=== PATIENT | male | born 1955 | race Two or more races ===

== ENCOUNTER 2019-09-08 23:58 | Inpatient (IN) | payer MEDICAID, OTHER ==
--- NOTE | 2019-09-09 00:10 | ED ---
Psychiatric Complaint - HPI Summary HPI Summary: 64-year-old male with no significant past medical history presents to the emergency department today with a 2209 order who has altered mental status upon arrival however he is nontoxic and in no acute distress medically. Patient is speaking in bizarre sentences repeatedly mentioning "Mary Ann" and the "person with a ponytail" and the "5 second rule". Patient is an employee at [employer]. Patient's coworkers called EMS while at [employer] as the patient was acting strangely all day. Upon arrival to the emergency department patient has no medical complaints and denies physical pain or shortness of breath, chest and abdominal pain, fever, suicidal or homicidal ideation. Patient denies alcohol use or recreational drug use prior to arrival. BG was 89 via EMS. HPI difficult to obtain due to pt mentation. - History Of Current Complaint Time Seen by Provider: 09/09/19 00:04 Hx Obtained From: Patient Character: Anxious Associated Signs And Symptoms: Positive: Confused Has Suicidal: Denies: Thoughts Has Homicidal: Denies: Thoughts Review of Systems Constitutional: Negative Eyes: Negative ENT: Negative Cardiovascular: Negative Respiratory: Negative Gastrointestinal: Negative Genitourinary: Negative Musculoskeletal: Negative Skin: Negative Neurological/Mental Status: Negative Psychological: Normal All Other Systems Reviewed And Are Negative: Yes Physical Exam - Summary Physical Exam Summary: Patient is in no acute distress. Trauma. No other deformity noted. Patient has full range of motion with 5 out of 5 strength throughout body. Patient has no evidence of labored breathing for fever, wheezing. Patient appears anxious and acts as if he is intoxicated and is speaking coherently with bizarre sentences. Triage Information Reviewed: Yes Vital Signs Reviewed: Yes Appearance: Positive: Well-Appearing, No Pain Distress, Well-Nourished Skin: Positive: Warm, Skin Color Reflects Adequate Perfusion Eyes: Positive: EOMI, RACHEL ENT: Positive: Hearing grossly normal Respiratory/Lung Sounds: Positive: Clear to Auscultation, Breath Sounds Present Cardiovascular: Positive: RRR, S1, S2 Abdomen Description: Positive: Nontender, Soft Bowel Sounds: Positive: Present Musculoskeletal: Positive: Strength/ROM Intact Neurological: Positive: Sensory/Motor Intact, Alert, Oriented to Person Place, Time, Normal Gait, Facial Symmetry, Speech Normal Psychiatric: Positive: Patient Uncooperative for Exam AVPU Assessment: Alert Procedures - Sedation Patient Received Moderate/Deep Sedation with Procedure: No Diagnostics - Laboratory Result Diagrams: 09/09/19 00:25 09/09/19 00:25 Lab Statement: Any lab studies that have been ordered have been reviewed, and results considered in the medical decision making process. Re-Evaluation - Re-Evaluation First Eval Re-Evaluation Time: 03:28 Comment: TSH of 84.82 noted, T4 and brain CT ordered. Second Eval Re-Evaluation Time: 03:58 Comment: Unable to obtain brain CT at this time, patient unable to remain still. Ativan ordered. Third Eval Re-Evaluation Time: 05:04 Comment: Brain CT was still unable to be obtained as the patient was still awake and unable to remain still. Haldol ordered. Course/Dx - Course Course Of Treatment: Patient was evaluated in the emergency department today due to altered mental status under a 2209 order. Vitals noted and stable. Patient was in no acute distress however he was speaking in a bizarre fashion and appeared intoxicated. Patient was changed hospital scrubs and his belongings were collected. Patient was placed under observation. Patient was given 2 mg of Ativan IM due to being agitated and mildly combative with staff. Laboratory studies returned showing no leukocytosis with white blood cell count of 8.4. There is no significant anemia. There is no significant electrolyte abnormality. AST is markedly elevated at 74 with a healthy 33. This is suggestive of alcoholic fatty liver disease. All other LFTs are within normal limits. Serum alcohol level is 0. Pt cleared for mental health evaluation. Patient was signed out to emergency room attending physician Dr. Carrizales at approximately 2:30. - Differential Dx/Clinical Impression Differential Diagnosis/HQI/PQRI: Positive: Acute Psychosis, Drug Overdose/ Unintentional, Other - Alcohol intoxication Provider Diagnosis: Psychosis, Hypothyroidism Discharge ED - Sign-Out/Discharge Documenting (check all that apply): Sign-Out Patient Signing out patient TO: Puma Carrizales Receiving patient FROM: Navin Eagle - Discharge Plan Condition: Stable Disposition: ADMITTED TO [facility] Referrals: No Primary Care Phys,NOPCP [Primary Care Provider] - - Billing Disposition and Condition Condition: STABLE Disposition: Admitted to [facility] - Attestation Statements Provider Attestation: I have seen the patient with the JULIÁN and agree with the plan and documentation below except as noted: 64 y/o male p/w acute psychosis. Labs notable for sig elevated TSH, undetectable T4. Unable to get head CT 2/2 combativeness. Given ativan once, attempted CT did not tolerate, then given haldol. admit to medicine for pyschosis and hypothyroidism Puma Carrizales MD
[2019-09-09] MEDS ORDERED: LORazepam INJ* 2 MG/ML 1 ML VIAL IM ONE ×2 (00:20→03:59)
[2019-09-09] MEDS ORDERED: Lorazepam PYXIS KEY PRN ×3 (00:20→05:47)
[2019-09-09] MEDS ORDERED: Lorazepam PYXIS KEY ONE ×2 (00:24→04:20)
[2019-09-09 00:38] LABS: ABS Basophils 0.1 10^3/ul (0-0.2); ABS Eosinophils 0.3 10^3/ul (0-0.6); ABS Lymphocytes 1.3 10^3/ul (1.0-4.8); ABS Monocytes 0.4 10^3/ul (0-0.8); ABS Neutrophils 6.3 10^3/ul (1.5-7.7); Eosinophil % 3.4 %; Hematocrit 32 % (42-52); Hemoglobin 11.3 g/dL (14.0-18.0); Lymphocyte % 15.3 %; Mean Corpuscular HGB Conc 35 g/dL (31-36); Mean Corpuscular Hemoglobin 33 pg (27-31); Mean Corpuscular Volume 94 fL (80-94); Mean Platelet Volume 6.6 fL (7.4-10.4); Platelet Count 426 10^3/uL (150-450); Red Blood Count 3.41 10^6 /uL (4.18-5.48); Red Cell Distribution Width 14 % (10-15); White Blood Count 8.4 10^3/uL (3.5-10.8)
[2019-09-09 01:05] LABS: ALT 33 U/L (7-52); AST 74 U/L (13-39); Albumin/Globulin Ratio 1.4 (1-3); Alkaline Phosphatase 55 U/L (34-104); Anion Gap 10 mmol/L (2-11); BUN/Creatinine Ratio 13.6 (8-20); Blood Urea Nitrogen 18 mg/dL (6-24); CO2 Carbon Dioxide 25 mmol/L (22-32); Chloride 93 mmol/L (101-111); EGFR African American 66.1 (>60); EGFR Non-African American 54.6 (>60); Globulin 3.5 g/dL (2-4); Glucose 109 mg/dL (70-100); Potassium 4.4 mmol/L (3.5-5.0); Sodium 128 mmol/L (135-145); Total Protein 8.5 g/dL (6.4-8.9)
[2019-09-09 02:01] LABS: Acetaminophen < 15 mcg/mL; Alcohol < 10 mg/dL (<10); Salicylate < 2.50 mg/dL (<30)
[2019-09-09 02:45] LABS: TSH (Thyroid Stimulating Horm) 84.82 mcIU/mL (0.34-5.60)
--- NOTE | 2019-09-09 02:52 | ED ---
Progress - Progress Note Progress Note: Patient is received as a sign-out from HODA Eagle at 0230 09/09/19 shift end pending MHE and disposition of this patient. 0328 - TSH of 84.82 noted, T4 and brain CT ordered. 0358 - Unable to obtain brain CT at this time, patient unable to remain still. Ativan ordered. 0504 - Brain CT was still unable to be obtained as the patient was still awake and unable to remain still. Haldol ordered. Re-Evaluation - Re-Evaluation First Eval Re-Evaluation Time: 03:28 Comment: TSH of 84.82 noted, T4 and brain CT ordered. Second Eval Re-Evaluation Time: 03:58 Comment: Unable to obtain brain CT at this time, patient unable to remain still. Ativan ordered. Third Eval Re-Evaluation Time: 05:04 Comment: Brain CT was still unable to be obtained as the patient was still awake and unable to remain still. Haldol ordered. Course/Dx - Diagnoses Provider Diagnoses: Psychosis, Hypothyroidism - Provider Notifications Discussed Care Of Patient With: Courtney Stapleton Time Discussed With Above Provider: 05:11 Instructed by Provider To: Other - Patient's case was discussed with Dr. Stapleton, Dr. Stapleton accepts for admission Discharge ED - Sign-Out/Discharge Documenting (check all that apply): Patient Departure - admit, Receiving Sign- Out Receiving patient FROM: Navin Eagle - Discharge Plan Condition: Stable Disposition: ADMITTED TO [facility] Referrals: No Primary Care Phys,NOPCP [Primary Care Provider] - - Attestation Statements Document Initiated by Scribe: Yes Documenting Scribe: FELIPE OSORIO Provider For Whom Scribe is Documenting (Include Credential): GINA NGUYEN MD Scribe Attestation: FELIPE Babin, scribed for GINA NGUYEN MD on 09/09/19 at 0512. Status of Scribe Document: Ready
[2019-09-09 05:02] LABS: Free T4 < 0.25 ng/dL (0.61-1.12)
[2019-09-09] MEDS: Haloperidol INJ IV/IM* 5 MG/ML AMP IM ONE ×2 (05:05→07:54)
[2019-09-09] MEDS ORDERED: Hydrocortisone INJ* 100 MG/2 ML VIAL (in pyxis) IV ONE (05:30)
[2019-09-09] MEDS ORDERED: NS 0.9% 1000 ML** 1,000 ML IV ONE (05:31)
[2019-09-09] MEDS ORDERED: NS 0.9% 1000 ML** 1,000 ML IV SCH (05:45)
[2019-09-09] MEDS ORDERED: Haloperidol INJ IV/IM* 5 MG/ML AMP IV SLOW PU PRN (05:46)
[2019-09-09] MEDS ORDERED: LORazepam INJ* 2 MG/ML 1 ML VIAL IV PUSH PRN (05:47)
[2019-09-09] MEDS ORDERED: Levothyroxine INJ* 100 MCG/5 ML VIAL IV ONE (06:00)
[2019-09-09] MEDS ORDERED: D5W IV SCH (06:00)
[2019-09-09] MEDS ORDERED: LEVOTHYROXINE IV SCH (06:00)
[2019-09-09 06:22] LABS: Creatine Kinase 4722 U/L (10-223)
[2019-09-09 06:49] LABS: Urine Appearance Clear; Urine Bilirubin Negative (Negative); Urine Blood 1+ (Negative); Urine Color Yellow; Urine Glucose Negative (Negative); Urine Ketones Negative (Negative); Urine Nitrite Negative (Negative); Urine Protein 1+(30 mg/dL) (Negative); Urine Specific Gravity 1.016 (1.010-1.030); Urine Urobilinogen Negative (Negative)
[2019-09-09 07:00] LABS: Urine Benzodiazepine Screen None Detected (None Detect); Urine Opiates Screen None Detected (None Detect)
[2019-09-09 07:02] LABS: Urine Bacteria Absent (Absent); Urine Red Blood Cell Trace(0-2/hpf) (Absent); Urine White Blood Cell Trace(0-5/hpf) (Absent)
--- NOTE | 2019-09-09 07:59 | HP ---
HISTORY AND PHYSICAL: DATE OF ADMISSION: 09/09/19 CHIEF COMPLAINT: Bizarre behavior. PRIMARY CARE PROVIDER: Unknown. HISTORY OF PRESENT ILLNESS: Oscar Broderick is a 64-year-old male with unknown past medical history who was brought in by his co-workers from [facility] when he was noted to be acting out of sorts and bizarre behavior. When the patient presented to the ED, he was agitated, confused, and disoriented. Upon initial evaluation in the ED, it was noted that his TSH level over 80 and his free T4 was undetected. 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 He is going to be admitted to the intensive care unit, treated with IV levothyroxine. During the daytime, Endocrinology consult would be recommended. PAST MEDICAL HISTORY: Unobtainable from this patient who is just confused and now sedated with Haldol and Ativan. MEDICATIONS AT HOME: Unknown. FAMILY HISTORY: Unknown. SOCIAL HISTORY: Unknown. REVIEW OF SYSTEMS: Unable to obtain. When the patient wakes up, he denies any pain or shortness of breath or chest pain, but he is very sedated and lethargic and disoriented. PHYSICAL EXAMINATION GENERAL: The patient is a pleasant 64-year-old male who is sedated and lying in bed. The patient appears in no acute distress. He is oriented to self only. VITAL SIGNS: Blood pressure of 159/103, heart rate of 75 and regular, respiratory rate 16, oxygen saturation 98% on room air, temperature of 97.2. HEENT: Head: Atraumatic, normocephalic. Eyes: Pupils are equal, reactive to light and accommodation. Oropharynx is clear. Mucosa dry. NECK: Supple. No JVD, no bruit bilaterally. RESPIRATORY: Clear to auscultation bilaterally. CARDIOVASCULAR: Regular rate and rhythm. No murmur. ABDOMEN: Soft, nontender. Bowel sounds present in all 4 quadrants. EXTREMITIES: There is no edema. Pulses are +2 bilaterally. There is no clubbing or cyanosis. NEUROLOGIC: Speech is clear. Cranial nerves II through XII grossly intact. Motor strength is 5/5 bilaterally SKIN: Cool, dry, pale. Please note that there are no rashes noted on evaluation. PSYCHIATRIC: The patient is oriented to self only. He intermittently is able to cooperate with simple commands before drifting off to sleep. He requires multiple times to be convinced to be able to get an IV in, but eventually he agrees to that. DIAGNOSTIC STUDIES/LAB DATA: White blood cell count of 8.4, hemoglobin of 11.3 , hematocrit of 32, and platelets of 426. Sodium was 128, potassium 4.4, chloride 93, carbon dioxide 25, BUN 18, creatinine 1.32. Liver function test is unremarkable apart from slight elevation of AST of 74. Total CPK is pending. TSH of 84.8, free T4 of below 0.25, cortisol 16.06. Salicylates, acetaminophen, and alcohol level below detectable. CT of the brain is pending at the time of this dictation as well as EKG. ASSESSMENT AND PLAN: 1. A 64-year-old male with acute onset of disorientation and psychosis, in profound hypothyroidism. It is possible that the patient's psychosis is related to profound hypothyroidism. At this point, the patient is going to be treated with Synthroid, hydrocortisone IV. Due to possibility of arrhythmias, the patient is going to be placed in the intensive care unit. He will require one-to-one monitoring. At this point, he requires close attention due to that he is not cooperative with evaluation; he is at risk of pulling his IV out. During the daytime, our service should likely consult Endocrinology for help with further management of the profound hypothyroidism. 2. For DVT prophylaxis, the patient is going to be placed on heparin subcutaneously. 3. The patient's code status at this point was going to stay full since the patient is not able to make decisions for himself and he could not name a surrogate. 4. The patient's hyponatremia could be related to dehydration, but it could also be related to hypothyroidism. We will continue to treat the patient with intravenous fluids and recheck the patient's sodium level later on today. TIME SPENT: Approximately 55 minutes was spent on admission of this patient, more than half that time was spent [id number] with the patient during the interview and physical exam. [id number]/CPS #: [id number] MTDD
[2019-09-09] MEDS: Heparin VIAL(*) 5000 UNITS/ML VIAL (FIVE THOUSAND) SUBCUT SCH ×3 (08:09→21:01)
[2019-09-09 08:56] LABS: BUN/Creatinine Ratio 13.5 (8-20); Calcium 9.2 mg/dL (8.6-10.3); EGFR Non-African American 71.9 (>60); Potassium 4.8 mmol/L (3.5-5.0)
--- NOTE | 2019-09-09 11:32 | PN ---
<Inessa Stinson - Last Filed: 09/09/19 11:15> Progress Note - Progress Note Date of Service: 09/09/19 Note: Patient was admitted to ICU this morning for monitoring. He presents with AMS, agitation, and speaking bizzare sentences. His primary labwork that was abnormal , was a TSH of 84.82, Free T4 <0.25, and Na 128. Suspected hypothyroidism mediated psychosis. He was started on 200mcg synthroid and admitted to ICU for psychosis and cardiac monitoring. He was given at least 2 doses of ativan and possibly haldol in the ED. Upon assessment this AM, he is lethargic but wakes to verbal stimuli. He is oriented x2. Follows commands, doesnt open eyes, PERRL 3mm, protecting airway. Lung sounds have some wheezing throughout. Patient states he smokes 1PPD, no etoh use, and smokes marijuana daily. Denies other drug use. VSS. His sitter is at the bedside. He is restless at times. No EKG changes and has not required antipsychotics since ED. Patient is stable. He may be a candidate to transfer to floor later today. <Tika Browne - Last Filed: 09/09/19 13:09> Progress Note - Progress Note Note: Patient is hemodynamically stable since admission. Mental status has improved. Will transfer to floor with tele. I consulted Dr Olivo for further recommendations on management of hypothyroidism. No immediate medications or lab work necessary at this time. He will see the patient today.
--- NOTE | 2019-09-09 16:30 | CONSULT ---
Consult Consult: [facility] Inpatient Consult Note Date of Consult: 09/09/19 Reason for Consult: hypothyroidism Reason for Admission: altered mental status ASSESSMENT: 64 yo M with no significant past medical history, now presenting with AMS and moderate-severe hypothyroidism. 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 There is no evidence of adrenal insufficiency, although I recommend a Cosyntropin stimulation test to confirm this. See recommendations below. PLAN: - check TPO and thyroglobulin antibodies this admission - check TSH, free T4 daily while inpatient - start IV levothyroxine 100mcg QAM - change to PO levothyroxine 100mcg QAM when patient is tolerating oral intake - perform 250mcg Cosyntropin stimulation test at any time of day with 60 minute post-Cosyntropin cortisol level - follow-up with [facility] Endocrinology or Internal Medicine in 4 weeks - call with questions -- [phone] SUBJECTIVE: History of Present Illness: 64 yo M with no known PMH, now admitted for altered mental status and severe hypothyroid state. Patient has been in usual state of fair health and has continued to work at [email or web address], but was found to be confused in the evening of 09/08/19 and was brought to ED by police transport. Initial labs found TSH>80 and undetectable free T4, with exam consistent with myxedema. Patient denies personal or family history of thyroid disorder. No medications or substances other than tobacco. He does not have health insurance and has not seen a physician in many years. See ROS below. Acetaminophen (Tylenol Tab*) 650 mg PO Q4H PRN PRN Reason: PAIN-MILD/TEMP >/= 100.4 Haloperidol Lactate (Haldol Inj Iv/Im*) 5 mg IV SLOW PU Q6H PRN PRN Reason: AGITATION Heparin Sodium (Porcine) (Heparin Vial(*)) 5,000 units SUBCUT Q8HR [facility] Last Admin: 09/09/19 14:19 Dose: 5,000 units Lactated Ringer's (Lactated Ringers 1000 Ml Bag*) 1,000 mls @ 100 mls/hr IV PER RATE [facility] Lorazepam (Ativan Inj*) 1 mg IV PUSH Q4H PRN PRN Reason: ANXIETY Miscellaneous (Ativan Pyxis Bustos) 1 ea N/A .ATIVAN IV BUSTOS PRN PRN Reason: PYXIS BUSTOS Allergies/Intolerances: NKDA Social History: Lives alone, recently moved. Former roommate. 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 Active smoker. Denies alcohol or other drugs. Family History: None known. Review of Systems: Tingling numbness/pain in BLEs with SOB during prolonged ambulation. Depedent edema after prolonged standing. Feels cold when other people feel hot. OBJECTIVE: Temp Pulse Resp BP Pulse Ox 97.0 F 85 16 110/65 94 09/09/19 16:27 09/09/19 16:27 09/09/19 16:27 09/09/19 16:27 09/09/19 16:27 General: somnolent, pleasant oriented, no distress ENT: eyelid edema, neck supple, no thyromegaly, no bruit is heard Chest: CTAB, no wheezing or crackles CV: RRR, no murmur Abdomen: soft, non-tender Extremities: no edema, distal pulses intact Skin: warm, dry, no rash Neuro: grossly intact motor/sensory in extremities Psych: restricted affect, pleasant Labs: WBC 8.4 10^3/uL (3.5-10.8) 09/09/19 00:25 RBC 3.41 10^6 /uL (4.18-5.48) L 09/09/19 00:25 Hgb 11.3 g/dL (14.0-18.0) L 09/09/19 00:25 Hct 32 % (42-52) L 09/09/19 00:25 MCV 94 fL (80-94) 09/09/19 00:25 MCH 33 pg (27-31) H 09/09/19 00:25 MCHC 35 g/dL (31-36) 09/09/19 00:25 RDW 14 % (10-15) 09/09/19 00:25 Plt Count 426 10^3/uL (150-450) 09/09/19 00:25 MPV 6.6 fL (7.4-10.4) L 09/09/19 00:25 Neut % (Auto) 75.2 % 09/09/19 00:25 Lymph % (Auto) 15.3 % 09/09/19 00:25 [place] % (Auto) 5.2 % 09/09/19 00:25 Eos % (Auto) 3.4 % 09/09/19 00:25 Baso % (Auto) 0.9 % 09/09/19 00:25 Absolute Neuts (auto) 6.3 10^3/ul (1.5-7.7) 09/09/19 00:25 Absolute Lymphs (auto) 1.3 10^3/ul (1.0-4.8) 09/09/19 00:25 Absolute Monos (auto) 0.4 10^3/ul (0-0.8) 09/09/19 00:25 Absolute Eos (auto) 0.3 10^3/ul (0-0.6) 09/09/19 00:25 Absolute Basos (auto) 0.1 10^3/ul (0-0.2) 09/09/19 00:25 Absolute Nucleated RBC 0.0 10^3/ul 09/09/19 00:25 Nucleated RBC % 0.0 09/09/19 00:25 Sodium 128 mmol/L (135-145) L 09/09/19 08:31 Potassium 4.8 mmol/L (3.5-5.0) 09/09/19 08:31 Chloride 95 mmol/L (101-111) L 09/09/19 08:31 Carbon Dioxide 25 mmol/L (22-32) 09/09/19 08:31 Anion Gap 8 mmol/L (2-11) 09/09/19 08:31 BUN 14 mg/dL (6-24) 09/09/19 08:31 Creatinine 1.04 mg/dL (0.67-1.17) 09/09/19 08:31 Est GFR ( Amer) 87.0 (>60) 09/09/19 08:31 Est GFR (Non-Af Amer) 71.9 (>60) 09/09/19 08:31 BUN/Creatinine Ratio 13.5 (8-20) 09/09/19 08:31 Glucose 99 mg/dL (70-100) 09/09/19 08:31 Calcium 9.2 mg/dL (8.6-10.3) 09/09/19 08:31 Total Bilirubin 0.50 mg/dL (0.2-1.0) 09/09/19 00:25 AST 74 U/L (13-39) H 09/09/19 00:25 ALT 33 U/L (7-52) 09/09/19 00:25 Alkaline Phosphatase 55 U/L (34-104) 09/09/19 00:25 Total Creatine Kinase 4722 U/L (10-223) H 09/09/19 00:25 Total Protein 8.5 g/dL (6.4-8.9) 09/09/19 00:25 Albumin 5.0 g/dL (3.2-5.2) 09/09/19 00:25 Globulin 3.5 g/dL (2-4) 09/09/19 00:25 Albumin/Globulin Ratio 1.4 (1-3) 09/09/19 00:25 TSH 84.82 mcIU/mL (0.34-5.60) H 09/09/19 00:25 Free T4 < 0.25 ng/dL (0.61-1.12) L 09/09/19 00:25 Cortisol 16.06 mcg/dL 09/09/19 00:25 Urine Color Yellow 09/09/19 06:15 Urine Appearance Clear 09/09/19 06:15 Urine pH 6.0 (5-9) 09/09/19 06:15 Ur Specific Marre[place] 1.016 (1.010-1.030) 09/09/19 06:15 Urine Protein 1+(30 mg/dl) (Negative) A 09/09/19 06:15 Urine Ketones Negative (Negative) 09/09/19 06:15 Urine Blood 1+ (Negative) A 09/09/19 06:15 Urine Nitrate Negative (Negative) 09/09/19 06:15 Urine Bilirubin Negative (Negative) 09/09/19 06:15 Urine Urobilinogen Negative (Negative) 09/09/19 06:15 Ur Leukocyte Esterase Negative (Negative) 09/09/19 06:15 Urine WBC (Auto) Trace(0-5/hpf) (Absent) 09/09/19 06:15 Urine RBC (Auto) Trace(0-2/hpf) (Absent) 09/09/19 06:15 Urine Bacteria Absent (Absent) 09/09/19 06:15 Urine Glucose Negative (Negative) 09/09/19 06:15 Salicylates < 2.50 mg/dL (<30) 09/09/19 00:25 Urine Opiates Screen None detected (None Detect) 09/09/19 06:15 Acetaminophen < 15 mcg/mL 09/09/19 00:25 Ur Barbiturates Screen None detected (None Detect) 09/09/19 06:15 Ur Phencyclidine Scrn None detected (None Detect) 09/09/19 06:15 Ur Amphetamines Screen None detected (None Detect) 09/09/19 06:15 U Benzodiazepines Scrn None detected (None Detect) 09/09/19 06:15 Urine Cocaine Screen None detected (None Detect) 09/09/19 06:15 U Cannabinoids Screen Presumptive positive (None Detect) A 09/09/19 06:15 Serum Alcohol < 10 mg/dL (<10) 09/09/19 00:25
[2019-09-09] MEDS: Lactated Ringers 1000 ML Bag* 1,000 ML IV SCH (17:16)
[2019-09-10] MEDS: Lactated Ringers 1000 ML Bag* 1,000 ML IV SCH ×3 (03:14→21:34)
[2019-09-10] MEDS: Heparin VIAL(*) 5000 UNITS/ML VIAL (FIVE THOUSAND) SUBCUT SCH ×3 (05:47→21:35)
[2019-09-10 06:03] LABS: ABS Basophils 0.1 10^3/ul (0-0.2); ABS Lymphocytes 0.3 10^3/ul (1.0-4.8); ABS Monocytes 0.2 10^3/ul (0-0.8); ABS Neutrophils 6.9 10^3/ul (1.5-7.7); Eosinophil % 0.6 %; Hematocrit 27 % (42-52); Hemoglobin 9.8 g/dL (14.0-18.0); Lymphocyte % 4.1 %; Mean Corpuscular HGB Conc 36 g/dL (31-36); Mean Corpuscular Hemoglobin 34 pg (27-31); Mean Corpuscular Volume 94 fL (80-94); Mean Platelet Volume 6.6 fL (7.4-10.4); Platelet Count 331 10^3/uL (150-450); Red Blood Count 2.92 10^6 /uL (4.18-5.48); Red Cell Distribution Width 14 % (10-15); White Blood Count 7.5 10^3/uL (3.5-10.8)
[2019-09-10 06:18] LABS: ALT 23 U/L (7-52); AST 49 U/L (13-39); Albumin 3.9 g/dL (3.2-5.2); Albumin/Globulin Ratio 1.5 (1-3); Alkaline Phosphatase 46 U/L (34-104); Anion Gap 7 mmol/L (2-11); Blood Urea Nitrogen 14 mg/dL (6-24); CO2 Carbon Dioxide 26 mmol/L (22-32); Calcium 8.8 mg/dL (8.6-10.3); Chloride 97 mmol/L (101-111); EGFR Non-African American 75.2 (>60); Globulin 2.6 g/dL (2-4); Glucose 70 mg/dL (70-100); Potassium 3.6 mmol/L (3.5-5.0); Sodium 130 mmol/L (135-145); Total Protein 6.5 g/dL (6.4-8.9)
[2019-09-10 06:38] LABS: Creatine Kinase 2978 U/L (10-223)
[2019-09-10] MEDS ORDERED: Levothyroxine TAB* 100 MCG TAB PO ONE (07:26)
--- NOTE | 2019-09-10 08:15 | PN ---
Subjective Date of Service: 09/10/19 Interval History: No overnight events, feels good this morning. Anxious to go home, anxious to go for a walk. No constipation, weight gain, sleepiness, nausea. Objective Active Medications: Acetaminophen (Tylenol Tab*) 650 mg PO Q4H PRN PRN Reason: PAIN-MILD/TEMP >/= 100.4 Cosyntropin (Cosyntropin*) 0.25 mg IV ONCE ONE Stop: 09/10/19 09:01 Haloperidol Lactate (Haldol Inj Iv/Im*) 5 mg IV SLOW PU Q6H PRN PRN Reason: AGITATION Heparin Sodium (Porcine) (Heparin Vial(*)) 5,000 units SUBCUT Q8HR [facility] Last Admin: 09/10/19 05:47 Dose: 5,000 units Lactated Ringer's (Lactated Ringers 1000 Ml Bag*) 1,000 mls @ 100 mls/hr IV PER RATE [facility] Last Admin: 09/10/19 03:14 Dose: 100 mls/hr Levothyroxine Sodium (Synthroid Tab*) 100 mcg PO DAILY@0600 [facility] Lorazepam (Ativan Inj*) 1 mg IV PUSH Q4H PRN PRN Reason: ANXIETY Miscellaneous (Ativan Pyxis Bustos) 1 ea N/A .ATIVAN IV BUSTOS PRN PRN Reason: PYXIS BUSTOS Vital Signs - 8 hr 09/10/19 03:15 Temperature 97.4 F Pulse Rate 71 Respiratory 16 Rate Blood Pressure 124/76 (mmHg) O2 Sat by Pulse 94 Oximetry Oxygen Devices in Use Now: Nasal Cannula Appearance: alert, well appearing, asks appropriate questions about his condition Eyes: No Scleral Icterus Ears/Nose/Mouth/Throat: NL Teeth, Lips, Gums Neck: NL Appearance and Movements; NL JVP, No Thyroid Enlargement, Masses Respiratory: Symmetrical Chest Expansion and Respiratory Effort Cardiovascular: NL Sounds; No Murmurs; No JVD, RRR Abdominal: NL Sounds; No Tenderness; No Distention Lymphatic: No Cervical Adenopathy Extremities: No Edema Skin: No Rash or Ulcers Neurological: Alert and Oriented x 3, NL Muscle Strength and Tone, - - very slow speech, but appropriate and accurate content Result Diagrams: 09/10/19 05:41 09/10/19 05:41 Microbiology and Other Data: Microbiology 04/14/20 06:15 Urine Culture - Final Urine No Growth (<1,000 CFU/mL) Assess/Plan/Problems-Billing Assessment: - Patient Problems (1) Myxedema coma Current Visit: Yes Status: Acute Code(s): E03.5 - MYXEDEMA COMA SNOMED Code(s): 14657469 Comment: Dr. Olivo's consult reviewed; switch to PO levothyroxine today Check TPO and thyroglobulin abs Cosyntropin stim test today (2) Hyponatremia Current Visit: Yes Status: Acute Code(s): E87.1 - HYPO-OSMOLALITY AND HYPONATREMIA SNOMED Code(s): 28338229 Comment: likely related to #1 (3) Anemia Current Visit: Yes Status: Acute Code(s): D64.9 - ANEMIA, UNSPECIFIED SNOMED Code(s): 280627114 Comment: Normocytic No evidence of blood loss Check iron studies, b12/folate
[2019-09-10] MEDS ORDERED: Cosyntropin* 0.25 MG VIAL IV ONE (09:00)
[2019-09-10 11:26] LABS: % Iron Saturation 25 % (15-55); Iron 79 ug/dL (50-212); Total Iron Binding Capacity 321 mcg/dL (250-450); Transferrin 229 mg/dL (203-362)
[2019-09-10 11:48] LABS: Ferritin 96.3 ng/mL (24-336)
[2019-09-10 11:52] LABS: Folate 5.44 ng/mL (>3.99)
[2019-09-10 11:55] LABS: Thyroid Peroxidase Antibodies 365.01 IU/mL (<9)
[2019-09-10 12:08] LABS: Thyroglobulin Antibody II 1.2 IU/mL (<4.0)
[2019-09-10] MEDS: Acetaminophen TAB* 325 MG PO PRN (21:34)
[2019-09-11] MEDS: Heparin VIAL(*) 5000 UNITS/ML VIAL (FIVE THOUSAND) SUBCUT SCH ×3 (05:11→20:52)
[2019-09-11] MEDS: Levothyroxine TAB* 100 MCG TAB PO SCH (05:11)
[2019-09-11] MEDS ORDERED: Levothyroxine INJ* 100 MCG/5 ML VIAL IV SCH (07:25)
[2019-09-11] MEDS: Amoxicillin/Clavulanate TAB* 875 MG PO SCH ×2 (08:44→20:51)
[2019-09-11] MEDS: Cyanocobalamin TAB* 500 MCG PO SCH ×2 (08:44→08:48)
--- NOTE | 2019-09-11 09:18 | PN ---
Subjective Date of Service: 09/11/19 Interval History: Nurse unable to wean O2. Remains on 2L. He feels fine, he has no complaints. He is anxious to go home. He has a little cough, but says it is because he is trying to quit smoking. He denies myalgias, shortness of breath when coughing. Objective Active Medications: Acetaminophen (Tylenol Tab*) 650 mg PO Q4H PRN PRN Reason: PAIN-MILD/TEMP >/= 100.4 Last Admin: 09/10/19 21:34 Dose: 650 mg Amoxicillin/Clavulanate Potassium (Augmentin Tab*) 875 mg PO BID [facility] Last Admin: 09/11/19 08:44 Dose: 875 mg Cyanocobalamin (Vitamin B12 Tab*) 1,000 mcg PO DAILY [facility] Last Admin: 09/11/19 08:48 Dose: Not Given Haloperidol Lactate (Haldol Inj Iv/Im*) 5 mg IV SLOW PU Q6H PRN PRN Reason: AGITATION Heparin Sodium (Porcine) (Heparin Vial(*)) 5,000 units SUBCUT Q8HR [facility] Last Admin: 09/11/19 05:11 Dose: 5,000 units Levothyroxine Sodium (Synthroid Tab*) 100 mcg PO DAILY@0600 [facility] Last Admin: 09/11/19 05:11 Dose: 100 mcg Lorazepam (Ativan Inj*) 1 mg IV PUSH Q4H PRN PRN Reason: ANXIETY Last Admin: 09/11/19 02:19 Dose: 1 mg Miscellaneous (Ativan Pyxis Bustos) 1 ea N/A .ATIVAN IV BUSTOS PRN PRN Reason: PYXIS BUSTOS Vital Signs - 8 hr 09/11/19 09/11/19 09/11/19 02:19 04:15 08:25 Temperature 97.4 F Pulse Rate 71 Respiratory 20 16 16 Rate Blood Pressure 135/83 (mmHg) O2 Sat by Pulse 100 Oximetry Oxygen Devices in Use Now: Nasal Cannula Appearance: alert, well appearing Eyes: No Scleral Icterus Ears/Nose/Mouth/Throat: NL Teeth, Lips, Gums Neck: NL Appearance and Movements; NL JVP Respiratory: Symmetrical Chest Expansion and Respiratory Effort, Clear to Auscultation Cardiovascular: NL Sounds; No Murmurs; No JVD, RRR Abdominal: NL Sounds; No Tenderness; No Distention Lymphatic: No Cervical Adenopathy Extremities: No Edema Skin: No Rash or Ulcers Neurological: Alert and Oriented x 3 Result Diagrams: 09/10/19 05:41 09/10/19 05:41 Microbiology and Other Data: Microbiology 09/09/19 06:15 Urine Culture - Final Urine No Growth (<1,000 CFU/mL) Assess/Plan/Problems-Billing Assessment: - Patient Problems (1) Acute respiratory failure with hypoxia Current Visit: Yes Status: Acute Code(s): J96.01 - ACUTE RESPIRATORY FAILURE WITH HYPOXIA SNOMED Code(s): 70267883 Comment: with an infiltrate on CXR also long smoking history check covid, start abx for pna, continue to attempt to wean o2 transfer to 4N for covid rule out (2) Myxedema coma Current Visit: Yes Status: Acute Code(s): E03.5 - MYXEDEMA COMA SNOMED Code(s): 37945474 Comment: Resolved Continue po levothyroxine; will need follow up with Dr. Olivo as outpatient (3) Hyponatremia Current Visit: Yes Status: Acute Code(s): E87.1 - HYPO-OSMOLALITY AND HYPONATREMIA SNOMED Code(s): 08649903 Comment: likely related to #1 (4) Anemia Current Visit: Yes Status: Acute Code(s): D64.9 - ANEMIA, UNSPECIFIED SNOMED Code(s): 225858401 Comment: Normocytic No evidence of blood loss B12 slightly low Ferritin/iron studies normal Check FOBT
[2019-09-11] MEDS: Acetaminophen TAB* 325 MG PO PRN (17:02)
[2019-09-12] MEDS: Heparin VIAL(*) 5000 UNITS/ML VIAL (FIVE THOUSAND) SUBCUT SCH ×3 (05:59→20:30)
[2019-09-12] MEDS: Levothyroxine TAB* 100 MCG TAB PO SCH (05:59)
[2019-09-12] MEDS: Amoxicillin/Clavulanate TAB* 875 MG PO SCH ×2 (09:06→20:30)
--- NOTE | 2019-09-12 15:41 | PN ---
Subjective Date of Service: 09/12/19 Interval History: Oscar feels good today. Feels his mood is much improved, he apologizes for being mean yesterday. His breathing feels comfortable. He walked with PT 2 days ago but admits he was quite unsteady. Objective Active Medications: Acetaminophen (Tylenol Tab*) 650 mg PO Q4H PRN PRN Reason: PAIN-MILD/TEMP >/= 100.4 Last Admin: 09/11/19 17:02 Dose: 650 mg Amoxicillin/Clavulanate Potassium (Augmentin Tab*) 875 mg PO BID [facility] Last Admin: 09/12/19 09:06 Dose: 875 mg Cyanocobalamin (Vitamin B12 Tab*) 1,000 mcg PO DAILY [facility] Last Admin: 09/11/19 08:48 Dose: Not Given Haloperidol Lactate (Haldol Inj Iv/Im*) 5 mg IV SLOW PU Q6H PRN PRN Reason: AGITATION Heparin Sodium (Porcine) (Heparin Vial(*)) 5,000 units SUBCUT Q8HR [facility] Last Admin: 09/12/19 05:59 Dose: 5,000 units Levothyroxine Sodium (Synthroid Tab*) 100 mcg PO DAILY@0600 [facility] Last Admin: 09/12/19 05:59 Dose: 100 mcg Lorazepam (Ativan Inj*) 1 mg IV PUSH Q4H PRN PRN Reason: ANXIETY Last Admin: 09/11/19 02:19 Dose: 1 mg Miscellaneous (Ativan Pyxis Bustos) 1 ea N/A .ATIVAN IV BUSTOS PRN PRN Reason: PYXIS BUSTOS Vital Signs - 8 hr 09/12/19 09/12/19 09:00 12:20 Temperature 98.2 F 98.4 F Pulse Rate 72 67 Respiratory 18 18 Rate Blood Pressure 163/94 162/89 (mmHg) O2 Sat by Pulse 97 94 Oximetry Oxygen Devices in Use Now: Nasal Cannula Appearance: alert, well appearing, speaks slowly and intentionally Eyes: No Scleral Icterus Ears/Nose/Mouth/Throat: NL Teeth, Lips, Gums Neck: NL Appearance and Movements; NL JVP Respiratory: Symmetrical Chest Expansion and Respiratory Effort, Clear to Auscultation Cardiovascular: NL Sounds; No Murmurs; No JVD Abdominal: NL Sounds; No Tenderness; No Distention Lymphatic: No Cervical Adenopathy Extremities: No Edema Result Diagrams: 09/10/19 05:41 09/10/19 05:41 Microbiology and Other Data: Microbiology 09/09/19 06:15 Urine Culture - Final Urine No Growth (<1,000 CFU/mL) Assess/Plan/Problems-Billing Assessment: This is a 64 year old man who was admitted to the ICU on 09/08 with myxedema coma and subsequently was found to be hypoxic and have an infiltrate on cxr. - Patient Problems (1) Acute respiratory failure with hypoxia Current Visit: Yes Status: Acute Code(s): J96.01 - ACUTE RESPIRATORY FAILURE WITH HYPOXIA SNOMED Code(s): 97367637 Comment: with an infiltrate on CXR also long smoking history covid pending augmentin day 2 amb pulse ox yesterday; no O2 requirement (2) Myxedema coma Current Visit: Yes Status: Acute Code(s): E03.5 - MYXEDEMA COMA SNOMED Code(s): 16356389 Comment: Resolved Continue po levothyroxine; will need follow up with Dr. Olivo as outpatient (3) Hyponatremia Current Visit: Yes Status: Acute Code(s): E87.1 - HYPO-OSMOLALITY AND HYPONATREMIA SNOMED Code(s): 30112605 Comment: likely related to #1 (4) Anemia Current Visit: Yes Status: Acute Code(s): D64.9 - ANEMIA, UNSPECIFIED SNOMED Code(s): 879057057 Comment: Normocytic No evidence of blood loss B12 slightly low Ferritin/iron studies normal Check FOBT (5) Tobacco use Current Visit: Yes Status: Acute Code(s): Z72.0 - TOBACCO USE SNOMED Code( s): 358760247 Comment: motivated to quit, declines a patch Status and Disposition: agrees to STR, wants [facility], needs PT re-eval
[2019-09-12] MEDS: Cyanocobalamin TAB* 500 MCG PO SCH (16:22)
[2019-09-13] MEDS: Heparin VIAL(*) 5000 UNITS/ML VIAL (FIVE THOUSAND) SUBCUT SCH (06:09)
[2019-09-13] MEDS: Levothyroxine TAB* 100 MCG TAB PO SCH (06:15)
[2019-09-13 07:53] VITALS: BP 156/104
[2019-09-13] MEDS: Amoxicillin/Clavulanate TAB* 875 MG PO SCH (08:03)
[2019-09-13] MEDS: Cyanocobalamin TAB* 500 MCG PO SCH (08:03)
--- NOTE | 2019-09-13 10:29 | DS ---
CC: Dr. Ever Olivo* DISCHARGE SUMMARY: DATE OF ADMISSION: 09/09/19 DATE OF DISCHARGE: 09/13/19 PRINCIPAL DISCHARGE DIAGNOSES: 1. Myxedema coma. 2. Acute hypoxemic respiratory failure. 3. Community acquired pneumonia, COVID negative. 4. Anemia. 5. Tobacco use. MEDICATIONS: For discharge: 1. Augmentin 875 mg b.i.d. for 3 more doses. 2. Levothyroxine 100 mcg daily at 6 a.m. PHYSICAL EXAMINATION: At the time of discharge, temperature 97.5, heart rate 70 , respiratory rate 20, pulse ox 97% on room air, blood pressure 156/104. General: Alert, well-appearing man, in no distress, walking around his room. He has also ambulated in the hallway and the stairs today with physical therapy. HEENT: Pupils equal, round, reactive to light. Oral mucosa is moist. Neck: No JVP or adenopathy. His thyroid is not palpable. Abdomen is soft, nontender. Chest: Regular rate and rhythm with no murmurs. Extremities: No edema, rashes, or ulcers. Neurologic: He has a slow intentional speech, but is articulate and accurate. Strength is 5/5 in all extremities. PERTINENT STUDIES ON THIS HOSPITALIZATION: A brain CT on 09/09/19 showed no acute intracranial pathology, and a chest x-ray on 09/10/19 showed a right mid to lower lung zone air space opacification. CONSULTATION DURING THIS ADMISSION: Dr. Ever Olivo from Endocrinology. HOSPITAL COURSE BY PROBLEM: 1. Myxedema coma. Mr. Broderick was admitted to the ICU initially after he was noted to be saying delusional and incomprehensible statements at work. At the time of admission, he was found to have a TSH of 84.8 and a free T4 of less than 0.25. He was started on IV levothyroxine and Dr. Olivo was consulted. He agreed with this plan and recommended later transitioning into oral Synthroid. Mr. Broderick's mental status improved markedly. He is to continue on p.o. Synthroid, and I have arranged a followup appointment for him with Dr. lOivo, which I have included in Mr. Broderick's discharge instructions. 2. Acute hypoxemic respiratory failure. On 09/10/19, Mr. Broderick was noted to be hypoxic which was a new oxygen requirement. He had no complaints at that time, but a chest x-ray showed a right middle lobe infiltrate. Based on his hypoxia and his infiltrate, he was swabbed for COVD-19 and transferred to [address] [place] [address]. His COVID-19 returned undetected. His oxygen was able to be weaned, and he was treated for community acquired pneumonia with Augmentin. He did not have any periods of somnolence or unresponsiveness that would have predisposed him to aspiration for community acquired pneumonia, was more so suspected and he improved on community acquired pneumonia treatment. 3. Community acquired pneumonia. He needs 1.5 more days of Augmentin and this has been sent to his pharmacy. 4. Normocytic anemia. His iron studies were unremarkable. His B12 was noted to be a little bit low, so I have sent supplemental B12 to his pharmacy as well. A fecal occult blood test was ordered, but unfortunately was not collected on this hospitalization. I emphasized the importance of followup for a screening colonoscopy given his age and also with a diagnosis of anemia, and he understands how important this is to follow up with the primary care physician to get a referral for a colonoscopy. 5. Tobacco use. Mr. Broderick had been smoking prior to his admission, but he remained abstinent throughout his hospitalization. He is very motivated to quit and he declines any tobacco replacement products at this time. It will be important that he follows up with the new PCP for accountability for this as well. CONDITION AT THE TIME OF DISCHARGE: Stable. He has been walking around the hallway and is approved by PT to go home. DISPOSITION: Home with PCP and endocrinology followup. [id number]/[facility] #: [id number] ELENA
== END 2019-09-13 10:30 | disposition home or self-care (01) | DRG 52 ==
LOC: ED 23:58 → ICU 09-09 05:43 → MEDTELE 09-09 16:25 → MED 09-11 09:14 → MEDTELE 09-12 20:03
PROVIDERS: ADMIT Internal Medicine; ATTEND Internal Medicine
DX: E03.5 Myxedema coma (principal); J96.01 Acute respiratory failure with hypoxia; J18.9 Pneumonia, unspecified organism; E87.1 Hypo-osmolality and hyponatremia; F29 Unspecified psychosis not due to a substance or known physiological condition; R45.1 Restlessness and agitation; R41.0 Disorientation, unspecified; D64.9 Anemia, unspecified; F17.210 Nicotine dependence, cigarettes, uncomplicated
CPT/HCPCS: 36415; 70450; 71045; 80048; 80053; 80307; 80320; 80329; 81003; 81015; 82533; 82550; 82607; 82728; 82746; 83540; 83550; 84439; 84443; 85025; 86376; 86800; 87086; 87635; 93005; 94660; 96372; 99284; A9270-GY; G0480; J0834; J1630; J1644; J1720; J2060